=== PATIENT | male | born 1975 | race Caucasian/White ===

== ENCOUNTER 2023-08-11 11:00 | Emergency (ER) | payer SELFPAY ==
[2023-08-11 11:05] VITALS: BP 154/101; PULSE 92; RESP 20; TEMP 36.6; O2SAT 98; BMI 33.2
--- NOTE | 2023-08-11 11:10 | PC.NURSE ---
pt has been feeling increasingly fatigued. taking a bunch of 5 hour energy drinks
--- NOTE | 2023-08-11 11:14 | ECG_ITS ---
APPROVED REPORT Exam: Resting ECG HR:92 bpm ECG Measurements Heart Rate 92 AXES TN 147 P 63 QRSd 80 QRS 16 QT 335 T 57 QTc 385 Critical Notification Critical Value: No Conclusion SINUS RHYTHM NORMAL ECG Electronically signed by : GALA MASSEY, 08/12/2023 01:41:01
--- NOTE | 2023-08-11 11:21 | CT_ITS ---
PROCEDURE INFORMATION: Exam: CTA Chest With Contrast Exam date and time: 08/11/2023 11:53 AM Age: 47 years old Clinical indication: Pain; Chest pressure and radiating; Additional info: Cp rad to back TECHNIQUE: Imaging protocol: Computed tomographic angiography of the chest with contrast. Exam focused on the arteries. 3D rendering (Not supervised by radiologist): MIP and/or 3D reconstructed images were created by the technologist. Radiation optimization: All CT scans at this facility use at least one of these dose optimization techniques: automated exposure control; mA and/or kV adjustment per patient size (includes targeted exams where dose is matched to clinical indication); or iterative reconstruction. Contrast material: ISO 370; Contrast volume: 75 ml; Contrast route: INTRAVENOUS (IV); COMPARISON: No relevant prior studies available. FINDINGS: Pulmonary arteries: There is suboptimal opacification of pulmonary arteries due to contrast bolus timing. Aorta: Unremarkable. No aortic aneurysm. No aortic dissection. Lungs: Calcified granuloma right lung base Pleural spaces: Unremarkable. No pneumothorax. No pleural effusion. Heart: Unremarkable. No cardiomegaly. No pericardial effusion. Coronary arteries: No evidence of coronary artery calcification Lymph nodes: Calcified right perihilar lymph nodes Bones/joints: Unremarkable. No acute fracture. Soft tissues: Unremarkable. IMPRESSION: 1. Evidence of prior granulomatous disease. 2. No large or central pulmonary embolus. Evaluation of the peripheral pulmonary arteries is limited.
--- NOTE | 2023-08-11 11:24 | ED_ITS ---
Discharge Plan Disposition Patient Disposition: Home, Self-Care Referrals Follow up/Referrals: Abdulaziz Haile MD [Staff Physician] - See instructions (chest pain, syncope ) Provider,MD Aliyah [Primary Care Provider] - See instructions Activity Restrictions/Add. Instructions Additional Instructions/Restrictions: No cardiopulmonary emergency identified today. As discussed I cannot definitively tell you what caused you to pass out and I would like for you to follow-up with our airplane mechanic apprentice to get an outpatient Holter monitor and echo to rule out structural heart disease and/or arrhythmia. Please return to work as you can tolerate return with any significant worsening symptoms. Clinical Impressions Clinical Impression: Chest pain, Syncope Instructions Patient Instructions: DI for Low Back Pain Discharge ED Provider: Lizbeth Sierra General Adult HPI General Chief complaint: Back Pain/Injury Stated complaint: AO 08/07 upper back pain radiating to chest Time Seen by Provider: 08/11/23 11:12 Mode of Arrival: Ambulatory Source of Information: Patient Limitations: No Limitations Description of Symptoms (Recalled from ER Triage Doc. by RN): back pain, chest pain, passed out on sunday History of Present Illness HPI narrative: Patient is a 47-year-old previously healthy male presented with multiple complaints. 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 Had no preceding symptoms did have some nausea and vomiting afterwards but no chest pain shortness of breath etc. Since that time he has had some chest discomfort and states that its only with position and movement or coughing sneezing. No significant shortness of breath this chest pain is radiating through to his back. Denies any other fevers chills etc. Has never had any cardiopulmonary disease in the past. No structural heart disease that he is aware of. No history of DVT PE no hemoptysis prolonged immobilizations lower extremity swelling etc. Pain is been ongoing for the last several days. Currently he is asymptomatic at rest. Related Data Allergies Allergy/AdvReac Type Severity Reaction Status Date / Time No Known Allergies Allergy Verified 08/11/23 11:25 [facility] Disclaimer: The information contained in this section may have been updated after the patient was seen, as this information can be updated by other users. Social History Smoking Status: Never smoker alcohol intake: never current occupational status: other Travel in the last 8 weeks: None ROS Obtained: Yes All systems reviewed & no additional complaints except as documented Physical Exam General General appearance: alert and in no apparent distress Chest Chest inspection: Present normal inspection and symmetric chest wall rise; Absent tenderness Respiratory Respiratory exam: Present normal lung sounds bilaterally Cardiovascular Cardiovascular exam: Present regular rate and normal rhythm Neurological Exam Neurological exam: Present alert, oriented X3, CN II-XII intact and normal gait; Absent motor sensory deficit Medical Decision Making Benoit Inquiry Pt receiving controlled substance: No Vital Signs: 08/11/23 11:05 08/11/23 11:30 08/11/23 12:01 Temperature 98 F Temperature Source Oral Pulse Rate 90 78 Pulse Rate [Right Radial] 92 H Respiratory Rate 20 18 13 Blood Pressure 129/90 131/71 Blood Pressure [Right Arm] 154/101 H Blood Pressure Mean [Right Arm] 118 02 Sat by Pulse Oximetry 98 96 98 Oxygen Delivery Method Room Air Room Air Room Air Lab Data Lab results reviewed: Yes I reviewed the patient's lab results. Lab Results 08/11/23 11:15: WBC 7.1, RBC 5.85, Hgb 17.3, Hct 52.0, MCV 88.8, MCH 29.5, MCHC 33.3, RDW 14.0, Plt Count 252, MPV 7.7, Neut % (Auto) 64.7, Lymph % (Auto) 25.4, [place] % (Auto) 6.6, Eos % (Auto) 1.8, Baso % (Auto) 1.5, Neut # (Auto) 4.6, Lymph # (Auto) 1.8, [place] # (Auto) 0.5, Eos # (Auto) 0.1, Baso # (Auto) 0.1, Sodium 138, Potassium 4.2, Chloride 106, Carbon Dioxide 32 H, Anion Gap 4.2 L, BUN 13, Creatinine 0.90, Estimated Creat Clear 162, Estimated GFR 90, Est GFR ( Amer) 109, Glucose 116 H, Calcium 9.2, Total Bilirubin 0.4, AST 69 H, ALT 62, Alkaline Phosphatase 65, Troponin I < 0.01, Total Protein 6.7, Albumin 4.0, Globulin 2.7, Albumin/Globulin Ratio 1.5, Lipase 38 08/11/23 11:15 08/11/23 11:15 Orders (Tests/Meds): ED MEDICATIONS Discontinued Medications Generic Name Dose Route Start Last Admin Trade Name Clau PRN Reason Stop Dose Admin Acetaminophen 1,000 mg 08/11/23 11:21 08/11/23 11:36 Acetaminophen 500mg Tab PO 08/11/23 11:22 1,000 mg ONCE ONE Administration Lactated Ringer's 1,000 mls @ 999 mls/hr 08/11/23 11:30 08/11/23 11:37 Lactated Ringer's 1000 Ml Bag IV 08/11/23 12:30 999 mls/hr .Q1H1M ALONSO Administration Iopamidol 100 ml 08/11/23 11:55 08/11/23 11:58 Iopamidol-370 (76%);100ml Bottle IV 08/11/23 11:56 100 ml ONCE ONE Administration Ketorolac Tromethamine 15 mg 08/11/23 11:21 08/11/23 11:36 Ketorolac 30mg/Ml Vial IV 08/11/23 11:22 15 mg ONCE ONE Administration Sodium Chloride 10 ml 08/11/23 11:55 08/11/23 11:58 Sodium Chloride 0.9% 10ml Syr (Rad Only) IV 08/11/23 11:56 10 ml ONCE ONE Administration Sodium Chloride 50 ml 08/11/23 11:55 08/11/23 11:58 0.9 % Sodium Chloride 50 Ml Vial IV 08/11/23 11:56 50 ml ONCE ONE Administration ORDERS Category Date Time Status CT angio chest - dissection Stat Cat Scan 08/11/23 11:21 Completed CBC w/Auto Diff [Complete Blood Count Auto Diff] Stat Lab 08/11/23 11:15 Completed CMP [Comprehensive Metabolic Panel] Stat Lab 08/11/23 11:15 Completed Lipase Stat Lab 08/11/23 11:15 Completed Trop I [Troponin I] Stat Lab 08/11/23 11:15 Completed Troponin I Q3H Lab 08/11/23 14:30 Ordered Troponin I Q3H Lab 08/11/23 17:30 Ordered ECG Data Tracing #1: I reviewed this ECG and interpreted as documented below: Ventricular rate of 92 normal sinus rhythm no acute ischemic changes noted normal axis no conduction abnormalities normal EKG Medical Decision Narrative: 47-year-old male with above history. EKG was unremarkable specifically no evidence of ischemia. Single troponin negative which rules out myocardial injury or ACS as he had ongoing symptoms since Sunday. Cannot definitively say what caused him to pass out and I am concerned about a possible arrhythmia. No evidence of arrhythmia in the ED labs otherwise unremarkable. He has been advised to follow-up with his airplane mechanic apprentice to get an outpatient Holter monitor and echo to rule out structural heart disease. CT angio of the chest specifically was ordered to rule out dissection given his chest pain radiating through to his back. I personally interpreted this also reviewed radiology read which did not demonstrate aortic dissection pulmonary embolism lung parenchymal disease etc. Additionally no evidence of any spine disease noted. Therefore in retrospect this is most likely musculoskeletal in nature. He has been advised to take [id number] NSAIDs. He was offered a muscle laxer but declined this. He will follow-up outpatient with cardiology. No cardiopulmonary emergency was identified and he was discharged in stable condition. Critical Care Critical Care Time Critical Care Time: No
[2023-08-11 11:30] VITALS: BP 129/90; PULSE 90; RESP 18; O2SAT 96
[2023-08-11 11:31] LABS: Chloride 106 mmol/L (98-107)
[2023-08-11 11:32] LABS: Potassium 4.2 mmoL/L (3.5-5.1); Sodium 138 mmol/L (136-145)
[2023-08-11 11:34] LABS: Alanine Aminotransferase 62 U/L (12-78); Alkaline Phosphatase 65 U/L (38-126); Anion Gap 4.2 mEq/L (5-15); Aspartate Amino Transferase 69 U/L (17-59); Bilirubin,Total 0.4 mg/dl (0.2-1.3); Blood Urea Nitrogen 13 mg/dl (9-20); Carbon Dioxide 32 mmol/L (22.0-30.0); Creatinine Clearance Estimated 162 mL/min (50-200); Estimated Glomerular Filt Rate 90 ml/min (>60); GFR (African American) 109 ML/MIN (>60); Lipase 38 U/L (23-300)
[2023-08-11 11:35] LABS: Albumin/Globulin Ratio 1.5 (1.1-1.8); Calcium 9.2 mg/dl (8.4-10.2); Globulin 2.7 g/dL (1.3-3.2); Glucose 116 mg/dl (74-100); Total Protein,Serum 6.7 g/dl (6.3-8.2)
[2023-08-11 11:36] LABS: Basophils # 0.1 K/mm3 (0-0.2); Basophils % 1.5 % (0.1-2.0); Eosinophils # 0.1 K/mm3 (0.0-0.4); Eosinophils % 1.8 % (0.1-12.0); Hemoglobin 17.3 g/dL (14.1-18.0); Lymphocytes # 1.8 K/mm3 (0.7-4.5); Lymphocytes % 25.4 % (10-50); Mean Corpuscular HGB Conc 33.3 g/dL (31.8-35.4); Mean Corpuscular Hemoglobin 29.5 pg (27.0-31.2); Mean Corpuscular Volume 88.8 fl (80-94); Mean Platelet Volume 7.7 fl (7.4-10.4); Monocytes # 0.5 K/mm3 (0.1-1.0); Monocytes % 6.6 % (1.7-9.3); Neutrophils # 4.6 K/mm3 (1.8-7.8); Neutrophils % 64.7 % (37.0-80.0); Platelet Count 252 K/mm3 (142-424); Red Blood Count 5.85 M/mm3 (4.60-6.20); White Blood Count 7.1 K/mm3 (4.8-10.8)
[2023-08-11] MEDS: ACETAMINOPHEN 500MG TAB 1000 MG PO (11:36)
[2023-08-11] MEDS: KETOROLAC 30MG/ML VIAL 15 MG IV (11:36)
[2023-08-11] MEDS: LACTATED RINGERS 1000ML 1,000 ML 999 ML IV (11:37)
--- NOTE | 2023-08-11 11:54 | PC.NURSE ---
Pt gone to RAD
[2023-08-11] MEDS: SODIUM CHLORIDE 0.9% 10ML SYR (RAD ONLY) 10 ML IV (11:58)
[2023-08-11] MEDS: 0.9 % SODIUM CHLORIDE 50 ML VIAL IV (11:58)
[2023-08-11] MEDS: IOPAMIDOL-370 (76%);100ML BOTTLE 100 ML IV (11:58)
[2023-08-11 12:01] VITALS: BP 131/71; PULSE 78; RESP 13; O2SAT 98
--- NOTE | 2023-08-11 12:01 | PC.NURSE ---
pt back from CT scan
[2023-08-11 12:02] LABS: Troponin I < 0.01 ng/ml (0.00-0.034)
--- NOTE | 2023-08-11 12:34 | PC.NURSE ---
Dr. Sierra at bedside to discuss results and POC
[2023-08-11 12:49] VITALS: BP 113/69; PULSE 68; RESP 17; TEMP 36.7; O2SAT 99
== END 2023-08-11 12:50 | disposition home or self-care (01) ==
PROVIDERS: Emergency Provider Student in an Organized Health Care Education/Training Program
DX: R07.89 Other chest pain (principal); R55 Syncope and collapse
CPT/HCPCS: 71275; 80053; 83690; 84484; 85025; 93005; 96361; 96374; 99285; Q9967